=== PATIENT | female | born 1960 | race Caucasian/White ===

== ENCOUNTER 2022-06-11 11:12 | Observation (INO) ==
[2022-06-11 11:58] LABS: Basophils # 0.1 K/mcL (0.0-0.2); Basophils % 0.7 %; Eosinophils # 0.3 K/mcL (0.0-0.6); Eosinophils % 3.2 %; Hemoglobin 13.7 g/dL (11.5-15.4); Immature Granulocytes % 0.5 % (0-4); Lymphocytes # 1.9 K/mcL (0.6-4.6); Lymphocytes % 23.4 %; Mean Corpuscular HGB Conc 32.6 g/dL (31.6-35.5); Mean Corpuscular Hemoglobin 30.9 pg (28.0-33.3); Mean Corpuscular Volume 94.6 fL (83.0-100.0); Monocytes # 0.6 K/mcL (0.0-1.3); Monocytes % 7.2 %; Neutrophils # 5.2 K/mcL (1.6-8.9); Platelet Count 292 K/mcL (140-400); Red Blood Count 4.44 M/mcL (3.82-4.97); Red Cell Distribution Width 13.9 % (11.5-14.5)
[2022-06-11] MEDS ORDERED: 0.9 % Sodium Chloride 500 ML IVC ONE (11:58)
[2022-06-11 12:35] LABS: BUN/Creatinine Ratio 27 (6-26); Blood Urea Nitrogen 17 mg/dL (8-23); Calcium 9.2 mg/dL (8.6-10.3); Carbon Dioxide 21 mEq/L (23-29); Chloride 104 mEq/L (98-107); Glucose 102 mg/dL (70-105); Osmolality,Calculated 284 (280-300); Potassium 4.2 mEq/L (3.5-5.1); Sodium 136 mEq/L (136-145); Troponin I < 0.03 ng/mL (< 0.04)
[2022-06-11 13:07] LABS: Prothrombin Time 32.7 Seconds (9.4-12.1)
[2022-06-11 13:09] LABS: Activated Partial Thrombo Time 53.6 Seconds (26.0-36.0)
[2022-06-11] MEDS ORDERED: Aspirin Enteric Coated 81 MG Tablet PO SCH (14:15)
[2022-06-11] MEDS ORDERED: Iopamidol - 370 500 ML MLS IVP ONE (14:46)
[2022-06-11 14:55] LABS: Alanine Aminotransferase 34 Units/L (7-52); Albumin 4.6 g/dL (3.5-5.7); Albumin/Globulin Ratio 1.8 (1.1-2.2); Alkaline Phosphatase 57 Units/L (34-104); Aspartate Amino Transferase 35 Units/L (13-39); Bilirubin,Direct 0.1 mg/dL (0.0-0.2); Bilirubin,Indirect 0.8 mg/dL (0.0-1.0); Bilirubin,Total 0.9 mg/dL (0.3-1.0); Globulin 2.5 g/dL (2.4-3.5); Total Protein 7.1 g/dL (6.4-8.9)
[2022-06-11 16:08] VITALS: BP 150/74; PULSE 65; TEMP 97.9; O2SAT 98
[2022-06-11] MEDS ORDERED: Warfarin perPT PO SCH (18:00)
[2022-06-12] MEDS ORDERED: *HR* Enoxaparin 40 MG/0.4 ML SYRINGE SQ SCH (06:00)
== END 2022-06-11 20:00 | disposition left against medical advice (07) ==
LOC: EMEROOARM 11:12 → 3BNU 11:12
PROVIDERS: ADMIT Internal Medicine; ATTEND Internal Medicine